=== PATIENT | male | born 1935 | race Caucasian/White ===

== ENCOUNTER 2019-05-02 13:38 | Emergency (ER) | payer OTHER ==
[~2019-05-02] VITALS: Ht 170.2 cm; Wt 73.5 kg
[2019-05-02 14:11] LABS: ABSOLUTE NEUTROPHILS 7.1 thou/uL (1.4-8.2); BASOPHILS 1.3 % (0.0-2.0); EOSINOPHILS 2.5 % (0.0-3.0); HEMATOCRIT 44.7 % (42.0-52.0); HEMOGLOBIN 14.7 gm/dL (14.0-18.0); LYMPHOCYTES 17.4 % (24.0-44.0); MCH 31.1 pg (26.0-34.0); MCHC 32.9 g/dL (28.0-37.0); MCV 94.7 fL (80.0-100.0); MONOCYTES 9.4 % (1.0-8.0); PLATELET COUNT 327 thou/uL (150-400); POLYS 69.4 % (36.0-66.0); RBC 4.72 mil/uL (4.50-6.00); RDW 13.5 % (10.5-14.5); WBC 10.3 thou/uL (4.0-11.0)
[2019-05-02 14:18] LABS: ANION GAP 6 mmol/L (7-16); BUN 22 mg/dL (7-18); CALCIUM 9.7 mg/dL (8.5-10.1); CHLORIDE 100 mmol/L (98-107); CO2 31 mmol/L (21-32); CREATININE 1.6 mg/dL (0.7-1.3); GLUCOSE 143 mg/dL (74-106); POTASSIUM 5.2 mmol/L (3.5-5.1); SODIUM 137 mmol/L (136-145)
[2019-05-02 14:27] LABS: TROPONIN-I <0.06 ng/mL (<0.06)
[2019-05-02] MEDS ORDERED: CARAFATE 1 GM TA1 G1 PO (15:00)
[2019-05-02] MEDS ORDERED: PROTONIX40 M4 PO (15:00)
[2019-05-02 15:03] VITALS: BP 126/58
--- NOTE | 2019-05-02 17:00 | EKG ---
[facility] [address] ELECTROCARDIOGRAM REPORT Name: KELVIN AVILA Room #: REG [facility]..#: [id number] Admission: 05/02/19 Attend Phys: Discharge: Date of : 37 Report #: [id number] THIS REPORT FOR: cc: Miguel Ángel Day David J. DO Lundgren, Craig H. MD [facility] ~ THIS REPORT FOR: //name// [facility] ED Test Date: 2019-05-02 Test Time: 13:48:23 Pat Name: KELVIN AVILA Department: Room: Gender: Supervisor Record Press: [facility] : 1935 Requested By: Bakari Hodge Order Number: [id number] MD: Conrado Hilton Measurements Intervals Mullen Rate: 55 P: 57 [place]: 156 QRS: -49 QRSD: 110 T: 32 QT: 400 QTc: 383 Interpretive Statements Sinus bradycardia Inferior infarct, old No previous ECG available for comparison Electronically Signed On 05-02-2019 16:59:44 [employer] by Conrado Hilton [email or web address] <ELECTRONICALLY SIGNED> By: Conrado Hilton MD, [facility] 05/02/19 1659 [id number] Conrado Hilton MD, [facility] /EPI
== END 2019-05-02 15:02 | disposition home or self-care (01) ==
LOC: ER 13:38
PROVIDERS: Emergency Medicine
DX: K21.9 Gastro-esophageal reflux disease without esophagitis (principal); Z87.891 Personal history of nicotine dependence